=== PATIENT | male | born 1960 | race Caucasian/White ===

== ENCOUNTER → 2020-08-29 | Outpatient (CLI) | payer OTHER ==
--- NOTE | 2020-08-30 08:39 | DIREP ---
PROCEDURE:US TESTICULAR WITH DOPPLER COMPARISON:None. INDICATIONS:EPIDIDYMITIS, BILAT TESTICLE PAIN & PALPS X1YR TECHNIQUE:The scrotum was evaluated with moses scale, spectral analysis, and color duplex doppler sonography. FINDINGS: RIGHT TESTICLE: Measures 3.8 x 2.2 x 3.3 cm. No mass or microcalcifications. Small to moderate hydrocele. LEFT TESTICLE: Measures 3.8 x 2.2 x 3.3 cm. No mass or microcalcifications. Small hydrocele with low level internal echoes. EPIDIDYMIS:The right epididymal head measures 1.0 x 0.7 cm. The left epididymal head measures 1.2 x 0.7 cm. Two cysts are identified at the level of the left epididymal head measuring 0.2 x 0.2 x 0.2 cm and 0.5 x 0.5 x 0.3 cm. OTHER:Large right varicocele. Small left varicocele. Additional images were provided of the area of concern. Two hypervascular, palpable areas are noted bilaterally, adjacent to or arising from the spermatic cords. DOPPLER FLOW: Symmetric waveforms with sustained diastolic flow. CONCLUSION: 1. Hypervascular palpable areas demonstrated bilaterally, adjacent to or arising from the spermatic cords. 2. Bilateral hydroceles, larger on the right. 3. Bilateral varicoceles, larger on the right. 4. Left epididymal head cysts. Dictated by: MATT Physician on 08/30/2020 at 08:17 AM ac
== END | disposition home or self-care (01) ==
LOC: RAD 16:02
PROVIDERS: ATTEND Urology
DX: N45.1 Epididymitis (principal)
CPT/HCPCS: 76870